=== PATIENT | male | born 1975 | race Caucasian/White ===

== ENCOUNTER 2022-07-20 14:40 | Outpatient (CLI) | payer OTHER | END 2022-07-20 23:59 | disposition critical access hospital (66) | LOC: EMS 14:40 | DX: R07.89 Other chest pain (principal); R42 Dizziness and giddiness; R06.02 Shortness of breath; R61 Generalized hyperhidrosis; I10 Essential (primary) hypertension | CPT/HCPCS: A0425; A0429 ==

== ENCOUNTER 2022-07-20 15:48 | Emergency (ER) | payer OTHER ==
--- NOTE | 2022-07-20 16:38 | XRAY Report ---
PROCEDURE: Chest 1 View X-Ray INDICATIONS: Chest pain TECHNIQUE: One view of the chest was acquired. COMPARISON: None. FINDINGS: Surgical changes and devices: None. Lungs and pleura: No pleural effusions or pneumothorax. Lungs are clear. Mediastinum: Mediastinal contours appear normal. Heart size is normal. Bones and chest wall: No suspicious bony lesions. Overlying soft tissues appear unremarkable. IMPRESSION: No acute cardiopulmonary process demonstrated radiographically. Reviewed by: Marcello Kasper MD on 07/20/2022 4:36 PM PST Approved by: Marcello Kasper MD on 07/20/2022 4:36 PM [facility] Station ID: [id number]
[2022-07-20 16:53] LABS: BASOPHILS # (AUTO) 0.1 10^3/uL (0.0-0.1); BASOPHILS % (AUTO) 0.8 %; EOSINOPHILS # (AUTO) 0.1 10^3/uL (0.0-0.7); HCT - HEMATOCRIT 45.8 % (42.0-52.0); HGB - HEMOGLOBIN 14.8 g/dL (14.0-18.0); LYMPHOCYTES # (AUTO) 2.2 10^3/uL (1.5-3.5); LYMPHOCYTES % (AUTO) 18.5 %; MEAN CORPUSCULAR HEMOGLOBIN 28.7 pg (27.0-31.0); MEAN CORPUSCULAR HGB CONC 32.3 g/dL (32.0-36.0); MEAN CORPUSCULAR VOLUME 88.8 fL (80.0-94.0); MEAN PLATELET VOLUME 10.6 fL (7.4-11.4); MONOCYTES # (AUTO) 0.7 10^3/uL (0.0-1.0); MONOCYTES % (AUTO) 5.6 %; NEUTROPHILS # (AUTO) 8.6 10^3/uL (1.5-6.6); NEUTROPHILS % (AUTO) 73.7 %; PLT - PLATELET COUNT 310 10^3/uL (130-450); RED BLOOD COUNT 5.16 10^6/uL (4.70-6.10); RED CELL DISTRIBUTION WIDTH 12.9 % (12.0-15.0); WHITE BLOOD COUNT 11.7 x10^3/uL (4.8-10.8)
[2022-07-20 17:14] LABS: ALBUMIN 3.9 g/dL (3.2-5.5); ALBUMIN/GLOBULIN RATIO 0.9 (1.0-2.2); BILIRUBIN,TOTAL 0.4 mg/dL (0.2-1.0); CALCIUM 10.9 mg/dL (8.5-10.3); CREATININE 0.9 mg/dL (0.6-1.2); POTASSIUM 3.7 mmol/L (3.5-5.0); TOTAL PROTEIN 8.2 g/dL (6.7-8.2)
--- NOTE | 2022-07-20 17:21 | ED Physician Documentation ---
PD HPI CHEST PAIN - Stated complaint Stated Complaint: CP - Chief complaint Chief Complaint: Cardiac - History obtained from History obtained from: Patient - History of Present Illness Timing - onset: Today Timing - onset during: Exertion Timing - duration: Minutes (30) Pain level max: 6 Pain level now: 5 Quality: Pressure, Tightness Location: Substernal Improved by: Rest, Nitro, ASA Worsened by: Exertion Associated symptoms: Shortness of air, Diaphoresis, Nausea, Feeling faint / dizzy, General Weakness. No: Vomiting, Palpitations - Additional information Additional information: Patient states that he was cutting [place] property today when he developed substernal chest pain. [place] like an ache in the center of his chest. Radiated to the right and left side of his chest. He states he had similar symptoms about 5 to 6 years ago and had a negative stress test at that time. The pain improved with rest and worsened with exertion. He received aspirin and nitroglycerin with EMS prior to arrival. Currently asymptomatic Review of Systems Constitutional: denies: Fever, Chills Respiratory: denies: Cough GI: denies: Nausea, Vomiting, Diarrhea Skin: denies: Rash Musculoskeletal: denies: Neck pain, Back pain Neurologic: denies: Headache PD PAST MEDICAL HISTORY - Past Medical History Past Medical History: No - Past Surgical History Past Surgical History: No - Allergies Allergies/Adverse Reactions: Allergies Allergy/AdvReac Type Severity Reaction Status Date / Time No Known Drug Allergies Allergy Verified 07/20/22 16:16 - Living Situation Living Situation: reports: With family Living Arrangement: reports: At home - Social History Does the pt smoke?: No Does the pt drink ETOH?: Yes ETOH Use: Other (Occasional alcohol use) Does the pt have substance abuse?: No - Family History Family history: reports: Non contributory PD ED PE NORMAL - Vitals Vital signs reviewed: Yes - General General: Alert and oriented X 3, No acute distress, Well developed/nourished - HEENT HEENT: PERRL, Moist mucous membranes - Neck Neck: Supple, no meningeal sign - Cardiac Cardiac: RRR, No murmur, Strong equal pulses - Respiratory Respiratory: No respiratory distress, Clear bilaterally - Abdomen Abdomen: Soft, Non tender, Non distended - Derm Derm: Warm and dry - Extremities Extremities: No edema, No calf tenderness / cord - Neuro Neuro: Alert and oriented X 3 - Psych Psych: Normal mood, Normal affect Results - Vitals Vitals: Vital Signs - 24 hr 07/20/22 07/20/22 07/20/22 16:07 17:39 21:11 Temperature 36.8 C Heart Rate 88 74 75 Respiratory 18 16 18 Rate Blood Pressure 165/85 H 159/106 H 153/94 H O2 Saturation 100 100 100 Oxygen O2 Source Room air - EKG (time done) 1619 Rate: Rate (enter#) (82) Rhythm: NSR Arnold: Normal Intervals: Normal IA QRS: Normal Ischemia: Normal ST segments - Labs Labs: Laboratory Tests 07/20/22 07/20/22 07/20/22 16:48 16:48 16:48 WBC 11.7 H RBC 5.16 Hgb 14.8 Hct 45.8 MCV 88.8 MCH 28.7 MCHC 32.3 RDW 12.9 Plt Count 310 MPV 10.6 Neut # (Auto) 8.6 H Lymph # (Auto) 2.2 Cowley # (Auto) 0.7 Eos # (Auto) 0.1 Baso # (Auto) 0.1 Absolute Nucleated RBC 0.00 Nucleated RBC % 0.0 Sodium 139 Potassium 3.7 Chloride 103 Carbon Dioxide 25 Anion Gap 11.0 BUN 17 Creatinine 0.9 Estimated GFR (MDRD) 90 Glucose 105 H Calcium 10.9 H Total Bilirubin 0.4 AST 32 ALT 62 H Alkaline Phosphatase 78 Troponin I High Sens 100.6 H* Total Protein 8.2 Albumin 3.9 Globulin 4.3 H Albumin/Globulin Ratio 0.9 L Lipase 46 SARS-CoV-2 (PCR) 07/20/22 07/20/22 18:37 20:15 WBC RBC Hgb Hct MCV MCH MCHC RDW Plt Count MPV Neut # (Auto) Lymph # (Auto) Cowley # (Auto) Eos # (Auto) Baso # (Auto) Absolute Nucleated RBC Nucleated RBC % Sodium Potassium Chloride Carbon Dioxide Anion Gap BUN Creatinine Estimated GFR (MDRD) Glucose Calcium Total Bilirubin AST ALT Alkaline Phosphatase Troponin I High Sens 190.2 H* Total Protein Albumin Globulin Albumin/Globulin Ratio Lipase SARS-CoV-2 (PCR) NOT DETECTED - Rads (name of study) Chest x-ray Radiology: Final report received, See rad report PD Medical Decision Making - ED course Complexity details: reviewed results, re-evaluated patient, considered differential, d/w patient, d/w excellence consultant ED course: Patient is a 47-year-old male who presents with history concerning for ACS. Exertional chest pain. Resolved with aspirin and nitroglycerin. No acute findings on EKG, chest x-ray. Initial high-sensitivity troponin was elevated at 100. Repeat high-sensitivity troponin 2 hours later was at 190. Patient was given Lovenox 1 mg/kg. He was also given metoprolol 25 mg orally. Continues to be asymptomatic. No beds available at surrounding facilities. Contacted [facility] who will look for a bed, Dr. Salas. [facility] physician called back at approximately [phone]. He states that there should be a bed at [facility] after [address] Oliveros Is the accepting burn crew member. Dr. Mcgee is the accepting hospitalist. COBRA forms completed. Patient will be transferred for further care. This document was made in part using voice recognition software. While efforts are made to proofread this document, sound alike and grammatical errors may occur. Departure - Departure Disposition: 02 Transfer Acute Care Hosp Clinical Impression: NSTEMI (non-ST elevated myocardial infarction) Condition: Stable
[2022-07-20] MEDS ORDERED: ENOXAPARIN 100 MG/ML SYRINGE SUBQ STA (19:06)
[2022-07-20] MEDS ORDERED: METOPROLOL TARTRATE 25 MG TABLET PO SCH (20:00)
[2022-07-21 00:15] VITALS: BP 147/106
== END 2022-07-21 00:25 | disposition short-term general hospital (02) ==
LOC: ED 15:48
DX: I21.4 Non-ST elevation (NSTEMI) myocardial infarction (principal); Z20.822 Contact with and (suspected) exposure to COVID-19
CPT/HCPCS: 36415; 71045; 80053; 83690; 84484; 85025; 87635; 93005; 96372; 99284; 99285; A9270; J1650